=== PATIENT | female | born 1980 | race Hispanic/Latino ===

== ENCOUNTER → 2024-03-30 | Day surgery (SDC) | payer OTHER ==
[~2024-03-30] MED LIST: ACETAMINOPHEN 1000 MG/100 ML 100 ML IV ONE; BUPIVACAINE HCL 0.5% INJ 30 ML VIAL INJ ONE; DEXAMETHASONE SOD PHOS INJ 4 MG/ML SDV ONE; EPHEDRINE SULFATE INJ 50 MG/ML VIAL ONE; FENTANYL CITRATE/PF 100MCG/2 ML INJ ONE; GLYCOPYRROLATE INJ 0.2 MG/ML VIAL ONE; KETAMINE 50MG/5ML SYR ONE; LIDOCAINE HCL 2% LOCAL INJ 5 ML SDV VIAL INJ ONE; MIDAZOLAM HCL 2 MG/2 ML VIAL ONE; ONDANSETRON HCL INJ 2MG/ML 2ML 2 MG/ML VIAL ONE; PROPOFOL IV EMULSION 10 MG/ML 20 ML VIAL ONE; SEVOFLURANE INHAL SOLN 250 ML PEN BTL ONE
[2024-03-30] MEDS: CEFAZOLIN SODIUM 2 GM ONE (13:27)
[2024-03-30] MEDS: LACTATED RINGER'S 1,000 ML ONE (13:27)
[2024-03-30 14:55] VITALS: TEMP 97.4
[2024-03-30] MEDS: FENTANYL CITRATE/PF 100MCG/2 ML INJ ONE (15:20)
[2024-03-30] MEDS: HYDROCODONE/APAP 5MG-325MG TAB ONE (15:50)
[2024-03-30 16:00] VITALS: BP 125/83; PULSE 76; RESP 16; O2SAT 96
[2024-03-30] MEDS: HYDROMORPHONE 1MG/1ML INJ ONE (16:25)
== END | disposition home or self-care (01) ==
LOC: OR 11:38
PROVIDERS: ATTEND Podiatrist Foot & Ankle Surgery
DX: M20.11 Hallux valgus (acquired), right foot (principal); M21.271 Flexion deformity, right ankle and toes; M20.41 Other hammer toe(s) (acquired), right foot; F41.9 Anxiety disorder, unspecified; Z68.34 Body mass index [BMI] 34.0-34.9, adult
CPT/HCPCS: 81025; C1713; C1762; J1100; J1170; J2001; J2250; J2405

== ENCOUNTER → 2025-07-04 | Outpatient (REF) | payer OTHER | LOC: US 10:53 | PROVIDERS: ATTEND Nurse Practitioner | DX: R14.0 Abdominal distension (gaseous) (principal); K76.0 Fatty (change of) liver, not elsewhere classified | CPT/HCPCS: 76700 ==